=== PATIENT | male | born 1945 | race Two or more races ===

== ENCOUNTER 2019-10-21 08:51 | Outpatient (CLI) | payer OTHER | END 2019-10-21 09:00 | disposition home or self-care (01) | LOC: EDBD 08:51 → TOM 08:51 | DX: R10.84 Generalized abdominal pain (principal) ==

== ENCOUNTER 2019-10-23 15:58 | Outpatient (CLI) | payer OTHER | END 2019-10-23 16:02 | disposition home or self-care (01) | LOC: LAB 15:58 | DX: I10 Essential (primary) hypertension (principal); E11.9 Type 2 diabetes mellitus without complications; E03.8 Other specified hypothyroidism; E78.2 Mixed hyperlipidemia; N40.0 Benign prostatic hyperplasia without lower urinary tract symptoms; Z12.11 Encounter for screening for malignant neoplasm of colon; N39.0 Urinary tract infection, site not specified ==

== ENCOUNTER 2019-10-30 10:42 | Outpatient (CLI) | payer OTHER | END 2019-10-30 11:09 | disposition home or self-care (01) | LOC: LAB 10:42 | DX: N32.81 Overactive bladder (principal); N40.0 Benign prostatic hyperplasia without lower urinary tract symptoms; N39.0 Urinary tract infection, site not specified ==

== ENCOUNTER 2020-01-10 16:33 | Emergency (ER) | payer OTHER ==
[~2020-01-10] VITALS: Ht 180.3 cm; Wt 95.3 kg
[2020-01-10] MEDS ORDERED: COZAAR25 MG (17:00)
[2020-01-10] MEDS ORDERED: SIMVASTATIN5 MG (17:00)
[2020-01-10] MEDS ORDERED: DITROPAN XL10 MG (17:00)
== END 2020-01-10 19:21 | disposition home or self-care (01) ==
LOC: ER 16:33
DX: M94.0 Chondrocostal junction syndrome [Tietze] (principal)

== ENCOUNTER 2020-06-25 12:15 | Outpatient (CLI) | payer OTHER ==
[~2020-06-25 12:15] MED LIST: COZAAR25 MG; DITROPAN XL10 MG; SIMVASTATIN5 MG
== END 2020-06-25 12:26 | disposition home or self-care (01) ==
LOC: LAB 12:15
PROVIDERS: ATTEND Specialist
DX: J45.998 Other asthma (principal); Z20.828 Contact with and (suspected) exposure to other viral communicable diseases; E11.21 Type 2 diabetes mellitus with diabetic nephropathy; E03.8 Other specified hypothyroidism; N40.1 Benign prostatic hyperplasia with lower urinary tract symptoms; E11.65 Type 2 diabetes mellitus with hyperglycemia; Z12.11 Encounter for screening for malignant neoplasm of colon; N39.0 Urinary tract infection, site not specified; E78.2 Mixed hyperlipidemia

== ENCOUNTER 2020-06-26 15:03 | Outpatient (CLI) | payer OTHER | END 2020-06-26 15:08 | disposition home or self-care (01) | LOC: LAB 15:03 | PROVIDERS: ATTEND Specialist | DX: Z12.11 Encounter for screening for malignant neoplasm of colon (principal); E11.21 Type 2 diabetes mellitus with diabetic nephropathy; E03.8 Other specified hypothyroidism; N40.1 Benign prostatic hyperplasia with lower urinary tract symptoms; E11.65 Type 2 diabetes mellitus with hyperglycemia; N39.0 Urinary tract infection, site not specified; E78.2 Mixed hyperlipidemia; Z20.828 Contact with and (suspected) exposure to other viral communicable diseases ==

== ENCOUNTER 2020-06-26 15:20 | Outpatient (CLI) | payer OTHER | END 2020-06-26 16:14 | disposition home or self-care (01) | LOC: TOM 15:20 | PROVIDERS: ATTEND Specialist | DX: G93.89 Other specified disorders of brain (principal); I63.429 Cerebral infarction due to embolism of unspecified anterior cerebral artery ==

== ENCOUNTER 2021-10-08 09:53 | Outpatient (CLI) | payer OTHER | END 2021-10-08 10:04 | disposition home or self-care (01) | LOC: TOM 09:53 | PROVIDERS: ATTEND Urology | DX: R10.84 Generalized abdominal pain (principal) ==

== ENCOUNTER → 2021-12-20 | Emergency (ER) | payer OTHER ==
[~2021-12-20] VITALS: Ht 177.8 cm; Wt 83.5 kg
== END | disposition left against medical advice (07) ==
LOC: ER 19:59
DX: Z53.21 Procedure and treatment not carried out due to patient leaving prior to being seen by health care provider (principal)

== ENCOUNTER 2022-03-24 18:10 | Emergency (ER) | payer OTHER | END 2022-03-24 21:01 | disposition home or self-care (01) | LOC: ER 18:10 | DX: R10.2 Pelvic and perineal pain (principal) ==

== ENCOUNTER 2022-07-27 12:52 | Emergency (ER) | payer OTHER ==
[~2022-07-27] VITALS: Ht 182.9 cm; Wt 77.1 kg
== END 2022-07-27 17:13 | disposition home or self-care (01) ==
LOC: ER 12:52
DX: M54.50 Low back pain, unspecified (principal); I10 Essential (primary) hypertension; Z20.822 Contact with and (suspected) exposure to COVID-19

== ENCOUNTER 2022-10-01 09:58 | Inpatient (IN) | payer OTHER ==
[~2022-10-01] VITALS: Ht 182.9 cm; Wt 79.4 kg
--- NOTE | 2022-10-01 10:03 | NUR ---
PTE REFIERE QUE DESDE AN TIENE DOLOR DE PECHO SE REALIZA EKG Y SE ORESENTA AL DR HILLMAN SE UBICA PTE EN NICO CON MONITOR CARDIACO Y OXIMETRIA DE PULSO.
--- NOTE | 2022-10-01 10:42 | NUR ---
SE ORIENTA PTE SORBE EL TRATAMIENTO ORDENADO POR EL DR ALEGRE PTE ALERTA Y ORIENTADO POR 3 SE REALIZAN MUESTRAS DE LABORATORIO Y SE ADMINISTRAN MEDICAMENTO CELIA ORDEANDO.
--- NOTE | 2022-10-01 12:40 | NUR ---
SE RECIBE A PTE EN UNIDAD DE CHEST PAIN. PTE ALERTA Y ORIENTADO X3. SE UBICA A PTE EN CAMA CON BARANDAS ELEVADDAS POR SEGURIDAD Y EN POSICION SEMI REYNOLDS. SE OBSERVA VENOPUNCION EN MANO IZQUIERDA PATENTE. PTE CON MONITOR CARDIACO Y OXIMETRIA DE PULSO , CANULA NASAL A 2LT/MIN. SE REALIZA VENOPUNCION EN ANTEBRAZO REID CON ANGIO 20, AREA MARIEL DE EDEMA Y ENROJECIMIENTO. SE ADMINISTRA MEDICAMENTO CELIA ORDEN MEDICA. SE MANTIENE BAJO OBSERVACION POR CAMBIOS IDA TURNO.
--- NOTE | 2022-10-01 15:04 | NUR ---
SE RECIBE PACIENTE DE TURNO ANTERIOR ALERTA Y ORIENTADO X3 EN NICO CONECTADO A MONITOR CARDIACO Y OXIMETRIA DE PULSO. PTE CON VENOPUNCION EN LA #20 PATENTE Y MARIEL DE EDEMA BAJANDO TRIDIL @3ML/HR. PTE CON CANULA NASAL @2L TOLERANDO. PENDIENTE TROPO A LAS 0600PM.SE MONITOREAN LOS SV Y SE DOCUMENTAN.
[2022-10-03] MEDS ORDERED: TOLTERODINE TART4 MG (09:58)
[2022-10-03] MEDS ORDERED: CITALOPRAM HBR10 MG (09:58)
== END 2022-10-06 11:56 | disposition designated cancer center or children's hospital (05) | DRG 282 ==
LOC: ER 09:58 → MEDI 18:58
PROVIDERS: ADMIT Internal Medicine; ATTEND Internal Medicine
PROC: BW21ZZZ Computerized Tomography (CT Scan) of Abdomen and Pelvis (ICD-10-PCS; principal; 2022-10-02)
PROC: B24BYZZ Ultrasonography of Heart with Aorta using Other Contrast (ICD-10-PCS; 2022-10-02)
PROC: 4A12X4Z Monitoring of Cardiac Electrical Activity, External Approach (ICD-10-PCS; 2022-10-02)
DX: I21.4 Non-ST elevation (NSTEMI) myocardial infarction (principal); I24.9 Acute ischemic heart disease, unspecified; I51.4 Myocarditis, unspecified